=== PATIENT | female | born 1970 | race Hispanic/Latino ===

== ENCOUNTER 2018-01-23 10:19 | Observation (INO) | payer MEDICAID ==
[2018-01-19 11:49] LABS: Basophils # (Auto) 0.1 K/mm3 (0.0-0.1); Basophils % (Auto) 1.2 % (0.0-1.8); Eosinophils # (Auto) 0.4 K/mm3 (0.0-0.4); Eosinophils % (Auto) 3.3 % (0.0-4.3); Hematocrit 35.5 % (30.3-42.9); Hemoglobin 10.9 gm/dl (10.1-14.3); Lymphocytes # (Auto) 2.3 K/mm3 (1.2-5.4); Lymphocytes % (Auto) 19.5 % (13.4-35.0); Mean Corpuscular HGB Conc 31 % (30-34); Monocytes # (Auto) 0.6 K/mm3 (0.0-0.8); Monocytes % (Auto) 5.2 % (0.0-7.3); Platelet Count 370 K/mm3 (140-440); Red Cell Distribution Width 16.6 % (13.2-15.2)
[2018-01-19 11:54] LABS: Mean Corpuscular Hemoglobin 21 pg (28-32); Mean Corpuscular Volume 67 fl (79-97)
--- NOTE | 2018-01-22 10:05 | Anesthesia Consultation ---
Anesthesia Consult and Med Hx Date of service: 01/19/18 - Airway Anesthetic Teeth Evaluation: Good ROM Head & Neck: Adequate Mental/Hyoid Distance: Adequate Mallampati Class: Class II Intubation Access Assessment: Probably Good - Pulmonary Exam CTA: Yes - Cardiac Exam Cardiac Exam: RRR - Pre-Operative Health Status ASA Pre-Surgery Classification: ASA3 Proposed Anesthetic Plan: General Nerve Block: TAP - Pulmonary Hx Asthma: No Hx Respiratory Symptoms: No - Cardiovascular System Hx Hypertension: No Hx Heart Attack/AMI: No Hx Peripheral Vascular Disease: Yes (occasional leg swelling) - Central Nervous System Hx Seizures: No CVA: No Hx Back Pain: Yes Hx Psychiatric Problems: Yes (anxiety) - Gastrointestinal Hx Gastroesophageal Reflux Disease: Yes - Endocrine Hx Renal Disease: No Hx Liver Disease: No Hx Insulin Dependent Diabetes: No Hx Non-Insulin Dependent Diabetes: No Hx Thyroid Disease: No - Hematic Hx Anemia: Yes - Other Systems Hx Cancer: No - Additional Comments Anesthesia Medical History Comments: Hx PCOS, fibroids. No hx anesthetic complications. Patient to decide DOS whether to receive TAP block preopertatively.
[2018-01-23] MEDS ORDERED: NEOSPORIN GU IR ONE ×2 (10:44→12:49)
--- NOTE | 2018-01-23 10:53 | History and Physical Report ---
History of Present Illness Date of examination: 01/23/18 Chief complaint: Symptomatic uterine fibroids History of present illness: Pt is a 47 yo WF LMP 01/09/18 presents for surgical evaluation and treatment of symptomatic uterine fibroids. She complains of prolonged heavy vaginal bleeding. Pelvic u/s showed the uterus to be 8.5 x 5 x 4cm with 2 fibroids, and endometrial biopsy was benign. She has had a Tubal ligation and does NOT desire future fertility. She is therefore scheduled for a Robotic Assisted Total Hysterectomy with Ovarian conservation. Past History Past Medical History: other (anxiety) Past Surgical History: section (x2), other (ankle surgery) [employer] History: fibroids Family/Genetic History: cancer Social history: no significant social history, single Medications and Allergies Allergies Allergy/AdvReac Type Severity Reaction Status Date / Time No Known Allergies Allergy Unverified 01/16/18 12:27 Home Medications Medication Instructions Recorded Confirmed Last Taken Type No Known Home Medications [No 01/16/18 01/16/18 Unknown History Reported Home Medications] Active Meds: Active Medications Celecoxib (Celebrex) 200 mg PO PREOP NR Stop: 01/23/18 23:59 Gabapentin (Neurontin) 300 mg PO PREOP NR Stop: 01/23/18 23:59 Lactated Ringer's (Lactated Ringers) 1,000 mls @ 100 mls/hr IV DIRECT GARETT Midazolam HCl (Versed) 2 mg IV PREOP PRN PRN Reason: Anxiety Stop: 01/23/18 23:59 Review of Systems All systems: negative - Vital Signs Vital signs: Vital Signs Temp Pulse Resp BP 98.1 F 72 18 120/80 01/19/18 11:00 01/19/18 11:00 01/19/18 11:00 01/19/18 11:00 Temp Pulse Resp BP Pulse Ox 98.1 F 72 18 120/80 01/19/18 11:00 01/19/18 11:00 01/19/18 11:00 01/19/18 11:00 - Physical Exam Breasts: Positive: deferred Cardiovascular: Regular rate Lungs: Positive: Clear to auscultation Abdomen: Positive: normal appearance, soft Uterus: Positive: enlarged Extremities: Positive: normal Results Result Diagrams: 01/19/18 11:30 All other labs normal. Ultrasound: report reviewed Assessment and Plan - Patient Problems (1) Uterine fibroid Onset Date: 01/23/18 Current Visit: Yes Status: Acute Qualifiers: Uterine leiomyoma location: intramural and submucous Qualified Code(s): D25.1 - Intramural leiomyoma of uterus; D25.0 - Submucous leiomyoma of uterus Plan to address problem: A: Symptomatic uterine fibroids Menorrhagia - most likely due to uterine fibroids P: Admit for a Robotic Assisted Total Hysterectomy with Bilateral Salpingectomy (2) Menorrhagia with regular cycle Onset Date: 01/23/18 Current Visit: Yes Status: Acute
[2018-01-23] MEDS ORDERED: LACTATED RINGERS 1,000 ML IV SCH (11:00)
[2018-01-23] MEDS ORDERED: NEURONTIN PO NR (11:00)
[2018-01-23] MEDS ORDERED: ANCEF/STERILE WATER 2 GM/20 ML 2 GM/20 ML SYRINGE IV NR (11:00)
[2018-01-23] MEDS: VERSED IV PRN ×2 (11:06→11:18)
[2018-01-23] MEDS ORDERED: ZEMURON IV ONE (11:36)
[2018-01-23] MEDS ORDERED: XYLOCAINE MPF 2% ONE (11:36)
[2018-01-23] MEDS ORDERED: REGLAN ONE (11:36)
[2018-01-23] MEDS ORDERED: SUBLIMAZE ONE (11:36)
[2018-01-23] MEDS ORDERED: QUELICIN ONE (11:36)
[2018-01-23] MEDS ORDERED: ZOFRAN ONE (11:36)
[2018-01-23] MEDS ORDERED: DIPRIVAN 10 MG/ML IV ONE (11:37)
[2018-01-23] MEDS ORDERED: VERSED ONE (11:37)
[2018-01-23] MEDS ORDERED: LACTATED RINGERS 1,000 ML ONE (12:31)
--- NOTE | 2018-01-23 12:42 | Anesthesia Day of Surgery ---
Anesthesia Day of Surgery - Day of Surgery Patient Examined: Yes Patient H&P Reviewed: Yes Patient is NPO: Yes
[2018-01-23] MEDS ORDERED: DILAUDID IV PRN (12:43)
[2018-01-23] MEDS ORDERED: NACL 0.9% IR ONE ×2 (12:49)
[2018-01-23] MEDS ORDERED: MARCAINE 0.5% INFILTRATI ONE ×2 (12:50)
[2018-01-23] MEDS ORDERED: MARCAINE 0.5% 30 ML INFILTRATI ONE (12:50)
[2018-01-23] MEDS ORDERED: ROBINUL ONE (13:14)
[2018-01-23] MEDS ORDERED: BLOXIVERZ ONE (13:14)
[2018-01-23] MEDS ORDERED: PERCOCET 5/325 PO PRN (13:34)
[2018-01-23] MEDS ORDERED: MILK OF MAGNESIA PO PRN (13:34)
[2018-01-23] MEDS ORDERED: ZOFRAN IV PRN (13:34)
[2018-01-23] MEDS ORDERED: NARCAN 0.4 MG/1 ML IV PRN ×2 (13:34→13:41)
[2018-01-23] MEDS ORDERED: TYLENOL PO PRN (13:34)
[2018-01-23] MEDS ORDERED: REGLAN IV PRN (13:34)
[2018-01-23] MEDS ORDERED: BENADRYL IV PRN (13:41)
[2018-01-23] MEDS ORDERED: NACL 0.9% 1000 ML 1,000 ML IV SCH (14:00)
[2018-01-23] MEDS ORDERED: D5LR 1,000 ML IV SCH (14:00)
[2018-01-23] MEDS ORDERED: MORPHINE PCA 30MG/30ML IV SCH (14:00)
[2018-01-23] MEDS ORDERED: MORPHINE PCA 30MG/30ML IV ONE (14:07)
[2018-01-23] MEDS: TORADOL IV SCH ×2 (14:07→21:35)
--- NOTE | 2018-01-23 16:08 | Operative Report ---
Operative Report Operative Report: Date of procedure: 01/23/2018 Pre-operative diagnosis: 1. Symptomatic uterine fibroids 2. Menorrhagia Post-operative diagnosis: Same with pelvic adhesions Procedure name(s): 1. Robotic-assisted total hysterectomy 2. Bilateral salpingectomy 3. Lysis of pelvic adhesions Surgeon: Lacho Barakat MD Ring Maker: Marquita Reynoso CSA Anesthesia: Gen. endotracheal intubation by Dr. Eisenberg EBL: 100 mL Findings: An 8 cm size uterus with tubes showed evidence of previous tubal ligation bilaterally, and normal ovaries bilaterally. Procedure: After the patient's first correctly identified she was prepped and draped in the usual sterile fashion and placed in the dorsolithotomy position. The bladder was first catheterized using Renee catheter and the speculum was placed in the vagina and the anterior lip of the cervix was grasped using a single-tooth tenaculum, and the medium Vesicare cup was placed. The tenaculum and speculum was then removed from the vagina and attention was then turned to the abdomen. The skin knife was used to make a small incision approximately 5 cm above the umbilicus through which a 12 mm trocar was placed under direct visualization. After adequate amount of abdominal insufflation visualization of the pelvic organs found the uterus to be enlarged and the tubes showed evidence of previous tubal ligation bilaterally, and ovaries were normal bilaterally. A right and left paramedian incision was made through which the 8 mm trochars were placed under direct visualization and a 5 mm trocar was placed in the right lower quadrant. The patient was then placed in steep Trendelenburg positioning and the robot was docked on the patient's left side. After all the robotic ports were connected and adequate functioning of the robotic arms were tested the surgeon then proceeded to the console to begin the hysterectomy. First the left round ligament was grasped, cauterized and cut, the left utero- ovarian ligaments were grasped, cauterized and cut, and the left fallopian tube also grasped, cauterized and cut along the mesosalpinx thus freeing the left ovary from the left uterine sidewall. The same procedure was performed on the right. The right round ligament was grasped, cauterized and cut, the right utero-ovarian ligaments were grasped, cauterized and cut, and the right fallopian tube also grasped, cauterized and cut along the mesosalpinx thus freeing the right ovary from the right uterine sidewall. There were lower uterocervical adhesions, which were taken down using sharp and blunt dissection. The bladder flap was taken down anteriorly and the uterine vessels were grasped, cauterized and cut bilaterally. The cardinal ligaments were sequentially grasped, cauterized and cut down to the level of the uterosacral ligaments. At this time the posterior colpotomy was performed over the Vcare cup, and the cervix was circumscribed beginning posteriorly and meeting anteriorly until the cervix was freed. The cervix and uterus was then removed through the vagina and sent to pathology. The vaginal cuff was then closed using 2-0 Vloc suture in a running fashion. Irrigation was then performed and after good hemostasis was achieved the procedure was considered complete. The Tisseel sealant was then sprayed across the vaginal cuff site, and after excellent hemostasis was assured Interceed was placed across the vaginal cuff site. All instruments were then removed from the abdominal cavity. And each incision was closed using 0 Vicryl suture in a [id number] configuration on the fascia followed by 4-0 Monocryl suture in a sub-cuticular fashion on the skin. Each incision was also infiltrated using 0.5% Marcaine solution. The vaginal pack was removed. The patient tolerated the procedure well and was transported to the recovery room in stable condition.
[2018-01-23] MEDS: ANCEF/NS 1 GM/50 ML 1 GM/50 ML BAG IV SCH ×2 (21:19→21:23)
[2018-01-23] MEDS: COLACE PO SCH (21:23)
[2018-01-23] MEDS ORDERED: VISTARIL PO PRN (21:34)
[2018-01-23] MEDS: NORCO 5/325 PO PRN (22:32)
[2018-01-24] MEDS: TORADOL IV SCH ×2 (03:09→08:00)
[2018-01-24 05:52] LABS: Hematocrit 29.1 % (30.3-42.9); Hemoglobin 8.9 gm/dl (10.1-14.3)
[2018-01-24] MEDS: ANCEF/NS 1 GM/50 ML 1 GM/50 ML BAG IV SCH (08:12)
--- NOTE | 2018-01-24 08:47 | Progress Note ---
Assessment and Plan - Patient Problems (1) Uterine fibroid Onset Date: 01/23/18 Current Visit: Yes Status: Resolved Qualifiers: Uterine leiomyoma location: intramural and submucous Qualified Code(s): D25.1 - Intramural leiomyoma of uterus; D25.0 - Submucous leiomyoma of uterus (2) Menorrhagia with regular cycle Onset Date: 01/23/18 Current Visit: Yes Status: Resolved (3) Status post robot-assisted surgical procedure Onset Date: 01/24/18 Current Visit: Yes Status: Resolved Plan to address problem: A: S/P RATH - POD #1 Doing well Asymptomatic anemia - stable P: May go home today. Subjective - Subjective Date of service: 01/24/18 Principal diagnosis: s/p RATH - POD #1 Interval history: Pt is s/p a Robotic Assisted Total Hysterectomy and feeling well without complaints. She is tolerating a liquid diet without nausea or vomiting, ambulating and voiding without difficulty. Patient reports: appetite normal, voiding normally, pain well controlled, flatus , ambulating normally, no dizzy ambulation, no nauseated Objective - Vital Signs Latest vital signs: Vital Signs Temp Pulse Resp BP BP Pulse Ox 01/24/18 06:17 20 01/24/18 04:17 20 01/24/18 04:10 98.2 F 68 20 110/64 97 01/24/18 02:17 20 01/24/18 00:17 20 01/24/18 00:00 98.2 F 70 20 109/66 98 01/23/18 22:26 98.2 F 57 L 20 140/53 01/23/18 22:17 20 01/23/18 21:19 18 01/23/18 20:17 18 01/23/18 18:17 18 01/23/18 18:00 18 01/23/18 16:30 18 01/23/18 16:17 18 01/23/18 14:55 98.0 F 54 L 16 146/62 100 01/23/18 14:30 54 L 14 132/50 100 01/23/18 14:15 48 L 16 148/78 100 01/23/18 14:07 16 01/23/18 14:00 52 L 16 148/69 100 01/23/18 13:55 54 L 15 155/62 100 01/23/18 13:50 52 L 13 150/70 100 01/23/18 13:45 54 L 14 152/75 100 01/23/18 13:40 58 L 16 148/78 100 01/23/18 13:35 98 F 58 L 18 142/66 100 01/23/18 10:31 97.9 F 86 11 L 118/73 99 Intake and Output 01/23/18 01/24/18 01/24/18 22:59 06:59 14:59 Intake Total 1650 120 Output Total 455 Balance 1195 120 Intake: IV 1050 ANCEF/NS 1 GM/50 ML 1 gm 50 In 50 ml @ 100 mls/hr IV Q8H GARETT Rx#:[id number] Lactated Ringers 1,000 ml 1000 @ 100 mls/hr IV DIRECT GARETT Rx#:[id number] Oral 600 120 Output: Urine 455 Void 400 Other: Intake, Other Source Saline Solution Total, Intake Amount 240 120 Total, Output Amount 400 Voiding Method Toilet # Voids Void 1 1 - Exam Breasts: Present: deferred Cardiovascular: Present: Regular rate Lungs: Present: Clear to auscultation Abdomen: Present: normal appearance, soft Extremities: Present: normal Incision: Present: normal, dry, intact - Labs Labs: Abnormal lab results 01/24/18 Range/Units 05:17 Hgb 8.9 L (10.1-14.3) gm/dl Hct 29.1 L (30.3-42.9) % Laboratory Tests 01/19/18 01/19/18 01/23/18 11:30 11:30 11:05 WBC 11.6 H RBC 5.30 H Hgb 10.9 Hct 35.5 MCV 67 L MCH 21 L MCHC 31 RDW 16.6 H Plt Count 370 Lymph % (Auto) 19.5 [place] % (Auto) 5.2 Eos % (Auto) 3.3 Baso % (Auto) 1.2 Lymph # 2.3 [place] # 0.6 Eos # 0.4 Baso # 0.1 Seg Neutrophils % 70.8 H Seg Neutrophils # 8.2 H HCG, Qual Negative Blood Type A POSITIVE Antibody Screen Negative 01/24/18 05:17 WBC RBC Hgb 8.9 L Hct 29.1 L MCV MCH MCHC RDW Plt Count Lymph % (Auto) [place] % (Auto) Eos % (Auto) Baso % (Auto) Lymph # [place] # Eos # Baso # Seg Neutrophils % Seg Neutrophils # HCG, Qual Blood Type Antibody Screen
--- NOTE | 2018-01-24 09:10 | Discharge Summary ---
Providers - Providers Date of Admission: 01/23/18 13:34 Date of discharge: 01/24/18 Attending physician: SONYA THAO Primary care physician: SONYA THAO Hospitalization Reason for admission: other (Symptomatic uterine fibroids; Menorrhagia) Procedure: other (Robotic Assisted Total Hysterectomy with Bilateral Salpingectomy) Laceration: none Incision: normal, dry, intact Other procedures: none complications: none Discharge diagnosis: other (s/p RATH) Hospital course: Pt is a 47 yo WF LMP 01/09/18 who presented for surgical evaluation and treatment of symptomatic uterine fibroids. She complains of prolonged heavy vaginal bleeding. Pelvic u/s showed the uterus to be 8.5 x 5 x 4cm with 2 fibroids, and endometrial biopsy was benign. She had a Tubal ligation and did NOT desire future fertility. She underwent an uncomplicated Robotic Assisted Total Hysterectomy with Bilateral Salpingectomy, and by POD #1 she was tolerating a reg diet without nausea or vomiting, ambulating and voiding without difficulty. She was therefore discharged to home on POD #1 in stable condition. Condition at discharge: Good Disposition: DC-01 TO HOME OR SELFCARE - Discharge Diagnoses (1) Uterine fibroid Status: Resolved Qualifiers: Uterine leiomyoma location: intramural and submucous Qualified Code(s): D25.1 - Intramural leiomyoma of uterus; D25.0 - Submucous leiomyoma of uterus (2) Menorrhagia with regular cycle Status: Resolved Plan - Discharge Medications Prescriptions: Ferrous Sulfate [Feosol 325 MG tab] 325 mg PO BID #60 tablet HYDROcodone/APAP 5-325 [[place] 5-325 mg TAB] 1 each PO Q6HR PRN #30 tablet PRN Reason: Pain, Moderate (4-6) Ibuprofen [Motrin] 800 mg PO Q8HR PRN #30 tablet PRN Reason: Pain, Mild (1-3) - Provider Discharge Summary Activity: routine, no sex for 6 weeks, no heavy lifting 4 weeks, no strenuous exercise Diet: routine Instructions: routine Additional instructions: [] Smoking cessation referral if applicable(refer to patient education folder for contact #) [] Refer to [facility] Booklet Call your doctor immediately for: * Fever > 100.5 * Heavy vaginal bleeding ( >1 pad per hour) * Severe persistent headache * Shortness of breath * Reddened, hot, painful area to leg or breast * Drainage or odor from incision. * Keep incision clean and dry at all times and follow doctor's instructions regarding bathing/showering - Follow up plan Follow up: SONYA THAO MD [Primary Care Provider] - 14 Days
[2018-01-24] MEDS: NORCO 5/325 PO PRN (11:52)
[2018-01-24] MEDS: COLACE PO SCH (11:52)
[2018-01-24 18:02] VITALS: BP 126/85
== END 2018-01-24 19:00 | disposition home or self-care (01) ==
LOC: OR 10:19 → OB 13:34
PROVIDERS: ADMIT Obstetrics & Gynecology; ATTEND Obstetrics & Gynecology
DX: N92.0 Excessive and frequent menstruation with regular cycle (principal); D25.0 Submucous leiomyoma of uterus; D25.1 Intramural leiomyoma of uterus; N73.6 Female pelvic peritoneal adhesions (postinfective); I73.9 Peripheral vascular disease, unspecified; K21.9 Gastro-esophageal reflux disease without esophagitis; F41.9 Anxiety disorder, unspecified
CPT/HCPCS: 36415; 58571; 84703; 85014; 85018; 85025; 86850; 86900; 86901; 88302; 88307; 96365; 96366; 96375; 96376; A4217; C1765; C9250; G0378; J0330; J0690; J1885; J2250; J2270; J2405; J2704; J2710; J2765; J3010; J7120; J7121; S2900; J1170; Q0177